=== PATIENT | female | born 1945 ===

== ENCOUNTER 2017-11-28 17:06 | Emergency (ER) | payer MEDICAID, MEDICARE ==
[2017-11-28 17:12] VITALS: RESP 18; TEMP 98; O2SAT 97
[2017-11-28] MEDS ORDERED: Silver Sulfadiazine 1% CREAM (50 gm) TOP STA (17:36)
[2017-11-28] MEDS ORDERED: Tdap Vaccine 0.5 ml Vial (10-64 yrs) IM ONE ×2 (17:36→17:57)
[2017-11-28] MEDS ORDERED: Silver Sulfadiazine 1% CREAM (50 gm) ONE (17:58)
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
[2017-11-28 18:18] VITALS: BP 118/74; PULSE 74
== END 2017-11-28 19:00 | disposition home or self-care (01) ==
LOC: H.ER 17:06
DX: T21.02XA Burn of unspecified degree of abdominal wall, initial encounter (principal); E11.9 Type 2 diabetes mellitus without complications; E78.00 Pure hypercholesterolemia, unspecified; F32.9 Major depressive disorder, single episode, unspecified; I10 Essential (primary) hypertension; Z79.82 Long term (current) use of aspirin; Z79.84 Long term (current) use of oral hypoglycemic drugs

== ENCOUNTER 2018-02-09 21:18 | Emergency (ER) | payer MEDICARE ==
[2018-02-09 21:27] VITALS: BP 116/64; PULSE 84; RESP 14; TEMP 97.9; O2SAT 95
--- NOTE | 2018-02-09 21:54 | ED PDOC ---
Lower Extremity Pain/Injury Time Seen by Provider: 02/09/18 21:37 Chief Complaint (Nursing): Lower Extremity Problem/Injury Chief Complaint (Provider): pain to vein of right leg History Per: Patient, Family History/Exam Limitations: no limitations Onset/Duration Of Symptoms: Days (1) Additional Complaint(s): 73 y/o female presents with daughter for evaluation of possible blood clot in right leg. Patient states today while standing she noticed a vein to "bulge" on her right lower extremity with pain. Patient states when she lays and does not have pressure on the leg the vein goes away. Patient is concerned because she had a blood clot in that leg 7 years ago. Denies fever, chest pain, shortness of breath, palpitations, recent travel. Past Medical History Reviewed: Historical Data, Nursing Documentation, Vital Signs Vital Signs: Last Vital Signs Temp 97.9 F 02/09/18 21:26 Pulse 84 02/09/18 21:26 Resp 14 02/09/18 21:26 BP 116/64 02/09/18 21:26 Pulse Ox 95 02/09/18 21:26 - Medical History PMH: Anemia, Depression, Diabetes (type II), Gastritis, HTN, Hypercholesterolemia - Surgical History Surgical History: Tonsillectomy - Family History Family History: States: Unknown Family Hx - Home Medications Home Medications: Ambulatory Orders Medication Instructions Recorded Aspirin [[place] Aspirin] 1 tab PO DAILY 11/06/16 Atorvastatin [Lipitor] 1 tab PO DAILY 11/06/16 Cholecalciferol (Vitamin D3) 1 tab PO DAILY 11/06/16 [Vitamin D3] Famotidine [Pepcid] 1 tab PO DAILY 11/06/16 Ibuprofen [Motrin Tab] 800 mg PO Q8 PRN #20 tab 11/06/16 Latanoprost 0.005% Opht [Xalatan 5 % BOTHEYES DAILY 11/06/16 Opht] Losartan [Cozaar] 1 tab PO DAILY 11/06/16 Omeprazole [Omeprazole] 1 tab PO DAILY 11/06/16 Sertraline [Zoloft] 1 tab PO DAILY 11/06/16 metFORMIN [glucOPHAGE] 1 tab PO BID 11/06/16 Cephalexin [cephalexin] 500 mg PO Q6 #28 cap 11/28/17 - Allergies Allergies/Adverse Reactions: Allergies Allergy/AdvReac Type Severity Reaction Status Date / Time No Known Allergies Allergy Verified 11/28/17 17:36 Review of Systems ROS Statement: Except As Marked, All Systems Reviewed And Found Negative Musculoskeletal: Positive for: Leg Pain Physical Exam - Reviewed Nursing Documentation Reviewed: Yes Vital Signs Reviewed: Yes - Physical Exam Appears: Positive for: Well, Non-toxic, No Acute Distress Head Exam: Positive for: ATRAUMATIC, NORMAL INSPECTION, NORMOCEPHALIC Skin: Positive for: Normal Color Eye Exam: Positive for: Normal appearance ENT: Positive for: Normal ENT Inspection Cardiovascular/Chest: Positive for: Regular Rate, Rhythm Respiratory: Positive for: Normal Breath Sounds Pulses-Dorsalis Pedis (L): 2+ Pulses-Dorsalis Pedis (R): 2+ Pulses-Post. Tibialis (L): 2+ Pulses-Post. Tibialis (R): 2+ Back: Positive for: Normal Inspection Extremity: Positive for: Normal ROM (multiple superficial veins noted to RLE, no palpable cord, erythema, warmth to touch noted). Negative for: Calf Tenderness Neurologic/Psych: Positive for: Alert, Oriented - ECG O2 Sat by Pulse Oximetry: 95 - Progress ED Course And Treament: accucheck, venous duplex RLE EXAM: US Duplex Right Lower Extremity Veins EXAM DATE/TIME: Exam ordered 02/09/2018 9:50 PM CLINICAL HISTORY: 73 years old, female; Signs and symptoms; Swelling of limb; Lower extremity, right; Additional info: R/out dvt TECHNIQUE: Real-time duplex ultrasound scan of the right lower extremity veins integrating B-mode twodimensional vascular structure, Doppler spectral analysis, color flow Doppler imaging and compression. COMPARISON: No relevant prior studies available. FINDINGS: Deep veins: Unremarkable. No DVT in the visualized common femoral, femoral, proximal deep femoral or popliteal veins. The veins demonstrate normal color flow, are normally compressible, with normal phasic flow and/or augmentation response. Superficial veins: Unremarkable. No thrombus in the visualized great saphenous vein. Soft tissues: No acute findings. No popliteal cyst. IMPRESSION: Negative right lower extremity venous duplex exam without evidence of deep venous thrombosis. Patient educated on findings, discharged with instructions to follow up PMD 2-3 days Advised compression stockings Return precautions given Disposition - Clinical Impression Clinical Impression: Painful veins - Patient ED Disposition Is Patient to be Admitted: No Counseled Patient/Family Regarding: Studies Performed, Diagnosis, Need For Followup - Disposition Disposition: Routine/Home Disposition Time: 23:18 Condition: GOOD Instructions: Varicose Veins and Other Vein Disease in the Legs Forms: [employer] ([place]) Print Language: POLISH
--- NOTE | 2018-02-10 10:09 | US ---
PROCEDURE: Right lower extremity venous duplex Doppler. HISTORY: r/out DVT COMPARISON: None available. TECHNIQUE: Common femoral, superficial femoral, popliteal and posterior tibial veins were evaluated. Flow was assessed with color Doppler, compressibility, assessment of phasic flow and augmentation response. FINDINGS: COMMON FEMORAL VEIN: Unremarkable. SUPERFICIAL FEMORAL VEIN: Unremarkable. POPLITEAL VEIN: Unremarkable. POSTERIOR TIBIAL VEIN: Unremarkable. OTHER FINDINGS: None. IMPRESSION: No evidence of deep venous thrombosis in the right lower extremity.
== END 2018-02-09 23:40 | disposition home or self-care (01) ==
LOC: H.ER 21:18
DX: I87.9 Disorder of vein, unspecified (principal); E11.9 Type 2 diabetes mellitus without complications; E78.00 Pure hypercholesterolemia, unspecified; F32.9 Major depressive disorder, single episode, unspecified; I10 Essential (primary) hypertension; Z79.82 Long term (current) use of aspirin; Z79.84 Long term (current) use of oral hypoglycemic drugs

== ENCOUNTER 2018-07-12 11:29 | Emergency (ER) | payer MEDICARE ==
[2018-07-12 12:18] VITALS: TEMP 98
[2018-07-12] MEDS ORDERED: Naproxen 500 MG TAB PO STA (12:47)
[2018-07-12] MEDS ORDERED: Naproxen 500 MG TAB PO ONE (12:53)
--- NOTE | 2018-07-12 13:41 | ED PDOC ---
HPI: Back Time Seen by Provider: 07/12/18 12:17 Chief Complaint (Nursing): Back Pain Chief Complaint (Provider): Back Pain History Per: Patient History/Exam Limitations: no limitations Onset/Duration Of Symptoms: Days (x2 weeks) Additional Complaint(s): 73 y/o female with HTN and anemia presents to the ED complaining of right buttock pain with radiation down leg. Patient reports that she fell x2 weeks ago and since then symptoms have persisted. She has had no such similar symptoms in the past. Patient states she took Tylenol but with no relief. Past Medical History Reviewed: Historical Data, Nursing Documentation, Vital Signs Vital Signs: Last Vital Signs Temp 98 F 07/12/18 12:15 Pulse 75 07/12/18 12:15 Resp 18 07/12/18 12:15 BP 134/69 07/12/18 12:15 Pulse Ox 97 07/12/18 12:15 - Medical History PMH: Anemia, Depression, Diabetes (type II), Gastritis, HTN, Hypercholesterolemia - Surgical History Surgical History: Tonsillectomy - Family History Family History: States: Unknown Family Hx - Home Medications Home Medications: Ambulatory Orders Medication Instructions Recorded Cholecalciferol (Vitamin D3) 1 tab PO DAILY 11/06/16 [Vitamin D3] Ibuprofen [Motrin Tab] 800 mg PO Q8 PRN #20 tab 11/06/16 Losartan [Cozaar] 1 tab PO DAILY 11/06/16 Omeprazole 1 tab PO DAILY 11/06/16 RX: Aspirin [[place] Aspirin] 1 tab PO DAILY 11/06/16 RX: Atorvastatin [Lipitor] 1 tab PO DAILY 11/06/16 RX: Famotidine [Pepcid] 1 tab PO DAILY 11/06/16 RX: Latanoprost 0.005% Opht 5 % BOTHEYES DAILY 11/06/16 [Xalatan Opht] RX: metFORMIN [glucOPHAGE] 1 tab PO BID 11/06/16 Sertraline [Zoloft] 1 tab PO DAILY 11/06/16 Cephalexin [cephalexin] 500 mg PO Q6 #28 cap 11/28/17 Cyclobenzaprine [Cyclobenzaprine 10 mg PO Q8H PRN #12 tab 07/12/18 HCl] - Allergies Allergies/Adverse Reactions: Allergies Allergy/AdvReac Type Severity Reaction Status Date / Time No Known Allergies Allergy Verified 11/28/17 17:36 Review of Systems ROS Statement: Except As Marked, All Systems Reviewed And Found Negative Musculoskeletal: Positive for: Back Pain, Leg Pain (right) Physical Exam - Reviewed Nursing Documentation Reviewed: Yes Vital Signs Reviewed: Yes - Physical Exam Appears: Positive for: Well, Non-toxic, No Acute Distress Head Exam: Positive for: ATRAUMATIC, NORMOCEPHALIC Skin: Positive for: Normal Color, Warm, DRY Eye Exam: Positive for: EOMI, Normal appearance, PERRL Cardiovascular/Chest: Positive for: Regular Rate, Rhythm. Negative for: Murmur, Bradycardia, Tachycardia Respiratory: Positive for: Normal Breath Sounds. Negative for: Respiratory Distress Back: Positive for: Normal Inspection. Negative for: Vertebral Tenderness (midline tenderness), Other (bony deformity) Extremity: Positive for: Normal ROM, Other (Right leg: positive straight leg raise test). Negative for: Pedal Edema, Deformity Neurologic/Psych: Positive for: Alert, Oriented, Gait (steady). Negative for: Motor/Sensory Deficits - ECG O2 Sat by Pulse Oximetry: 97 (RA) Pulse Ox Interpretation: Normal Medical Decision Making Medical Decision Making: No bony tenderness, steady gait. Pt insists on XR. Hip, 1 view. Time: 12:47 Initial Impression: right buttock pain s/p fall Initial Plan: * Flexeril * Naproxen * RAD - Hip Scribe Attestation: Documented by Jerod Morrison, acting as a scribe for Rosio Hassan PA-C. Provider Scribe Attestation: All medical record entries made by the Scribe were at my direction and personally dictated by me. I have reviewed the chart and agree that the record accurately reflects my personal performance of the history, physical exam, medical decision making, and the department course for this patient. I have also personally directed, reviewed, and agree with the discharge instructions and disposition. Disposition - Clinical Impression Clinical Impression: Sciatica - Patient ED Disposition Is Patient to be Admitted: No Counseled Patient/Family Regarding: Diagnosis, Need For Followup, Rx Given - Disposition Disposition: Routine/Home Disposition Time: 13:56 Condition: STABLE Prescriptions: Cyclobenzaprine [Cyclobenzaprine HCl] 10 mg PO Q8H PRN #12 tab PRN Reason: Muscle Spasm Instructions: Sciatica (DC), Sciatica Exercises Forms: [employer] (Upper Sorbian) Print Language: CZECH
[2018-07-12 14:34] VITALS: BP 141/59; PULSE 77; RESP 16
--- NOTE | 2018-07-12 15:07 | RAD ---
PROCEDURE: Right Hip Radiographs. HISTORY: right buttocks pain, s/p fall COMPARISON: None. FINDINGS: BONES: Normal. No fracture. JOINTS: Normal. SOFT TISSUES: Normal. OTHER FINDINGS: None. IMPRESSION: No acute findings related to/accounting for the clinical presentation.
[2018-07-12 19:56] VITALS: O2SAT 97
== END 2018-07-12 14:33 | disposition home or self-care (01) ==
LOC: H.ER 11:29
DX: M54.31 Sciatica, right side (principal); D64.9 Anemia, unspecified; E11.9 Type 2 diabetes mellitus without complications; Z79.84 Long term (current) use of oral hypoglycemic drugs

== ENCOUNTER 2018-11-16 10:23 | Emergency (ER) | payer MEDICARE ==
--- NOTE | 2018-11-16 11:37 | ED PDOC ---
HPI: General Adult Additional Complaint(s): This is 73 y/o F with PMH of anemia, HTN, DM-II, Gastritis and HLD comes to the ER c/o one day hx of dizziness/Vertigo and lightheadedness. Patient reports she woke up this morning at 3 am screaming c/o severe dizziness like she is going to pass out, + room spinning, + nausea, blurred vision and weakness. Reports this symptoms come and go, gets worse with movement. Patient denies any headache, ringing in ears, chest pain, SOB, abdominal pain, dysuria or numbness/tingling. Patient denies any f/c/n/v/d. + weight loss and recent upper resp congestion. PMH: anemia, HTN, DM-II, Gastritis and HLD PSH: Denies Allg: NKDA SH: Denies alcohol/smoking or drug use FH: + Pancreatic cancer ROS: As per above <Nate Sharma - Last Filed: 11/16/18 14:30> <Escobar Juarez - Last Filed: 11/16/18 14:37> Time Seen by Provider: 11/16/18 11:06 Chief Complaint (Nursing): Dizziness/Lightheaded Supervising Attending Note - Supervising Attending Note The Documented history was done by the: Physician Bottom Precipitator Operator The documented physical exam was done by the: Physician Bottom Precipitator Operator The documented procedures were done by the: Physician Bottom Precipitator Operator - Attestation: I have personally seen and examined this patient.: Yes I have fully participated in the care of the patient.: Yes I have reviewed all pertinent clinical information, including history, physical exam and plan: Yes - Notes: Notes:: dizziness like room spinning on movement; at rest no dizziness. <Escobar Juarez - Last Filed: 11/16/18 14:37> Past Medical History Vital Signs: Last Vital Signs Temp 97.7 F 11/16/18 10:56 Pulse 78 11/16/18 10:56 Resp 12 11/16/18 10:56 BP 126/72 11/16/18 10:56 Pulse Ox 97 11/16/18 10:56 - Medical History PMH: Anemia, Depression, Diabetes (type II), Gastritis, HTN, Hypercholesterolemia - Surgical History Surgical History: Tonsillectomy - Family History Family History: States: Unknown Family Hx <Nate Sharma - Last Filed: 11/16/18 14:30> Vital Signs: Last Vital Signs Temp 97.7 F 11/16/18 10:56 Pulse 78 11/16/18 10:56 Resp 12 11/16/18 10:56 BP 126/72 11/16/18 10:56 Pulse Ox 97 11/16/18 14:31 <JuarezEscobar Manzano - Last Filed: 11/16/18 14:37> - Home Medications Home Medications: Ambulatory Orders Medication Instructions Recorded Aspirin [[place] Aspirin] 1 tab PO DAILY 11/06/16 Atorvastatin [Lipitor] 1 tab PO DAILY 11/06/16 Cholecalciferol (Vitamin D3) 1 tab PO DAILY 11/06/16 [Vitamin D3] Famotidine [Pepcid] 1 tab PO DAILY 11/06/16 Ibuprofen [Motrin Tab] 800 mg PO Q8 PRN #20 tab 11/06/16 Latanoprost 0.005% Opht [Xalatan 5 % BOTHEYES DAILY 11/06/16 Opht] Losartan [Cozaar] 1 tab PO DAILY 11/06/16 Omeprazole 1 tab PO DAILY 11/06/16 Sertraline [Zoloft] 1 tab PO DAILY 11/06/16 metFORMIN [glucOPHAGE] 1 tab PO BID 11/06/16 Cephalexin [cephalexin] 500 mg PO Q6 #28 cap 11/28/17 Cyclobenzaprine [Cyclobenzaprine 10 mg PO Q8H PRN #12 tab 07/12/18 HCl] Meclizine [Meclizine*] 25 mg PO Q12 PRN #10 tab 11/16/18 - Allergies Allergies/Adverse Reactions: Allergies Allergy/AdvReac Type Severity Reaction Status Date / Time No Known Allergies Allergy Verified 11/28/17 17:36 Review of Systems Constitutional: Positive for: Weakness. Negative for: Fever, Sweats Eyes: Negative for: Pain ENT: Negative for: Ear Pain Cardiovascular: Negative for: Chest Pain, Palpitations, Orthopnea Respiratory: Negative for: Cough, Shortness of Breath, Hemoptysis Gastrointestinal: Positive for: Nausea. Negative for: Vomiting, Abdominal Pain, Diarrhea Genitourinary Female: Negative for: Dysuria, Frequency Musculoskeletal: Negative for: Neck Pain Skin: Negative for: Rash Neurological: Positive for: Weakness, Dizziness. Negative for: Numbness, Change in Speech, Confusion, Seizures, Altered Mental Status, Headache Psych: Negative for: Anxiety <Nate Sharma - Last Filed: 11/16/18 14:30> Physical Exam - Physical Exam Appears: Positive for: No Acute Distress Head Exam: Positive for: NORMAL INSPECTION Skin: Positive for: Normal Color Eye Exam: Positive for: Normal appearance ENT: Positive for: Normal ENT Inspection Neck: Positive for: Normal Cardiovascular/Chest: Positive for: Regular Rate, Rhythm Respiratory: Positive for: Normal Breath Sounds. Negative for: Decreased Breath Sounds, Accessory Muscle Use, Crackles, Wheezing Gastrointestinal/Abdominal: Positive for: Normal Exam, Bowel Sounds, Soft. Negative for: Tenderness, Distended, Guarding, Rebound Back: Positive for: Normal Inspection. Negative for: L CVA Tenderness, R CVA Tenderness Extremity: Positive for: Normal ROM. Negative for: Tenderness, Pedal Edema, Calf Tenderness Neurological/Psych: Positive for: Awake, Alert, Normal Tone, Oriented, wall covering contractor II- XII. Negative for: Motor/Sensory Deficits <Nate Sharma - Last Filed: 11/16/18 14:30> - Physical Exam Cardiovascular/Chest: Positive for: Regular Rate, Rhythm Respiratory: Positive for: Normal Breath Sounds <Escobar Juarez - Last Filed: 11/16/18 14:37> - Laboratory Results Result Diagrams: 11/16/18 11:45 11/16/18 11:45 - ECG O2 Sat by Pulse Oximetry: 97 - Progress ED Course And Treament: A/P: 73 y/o F with PMH of anemia, HTN, DM-II, Gastritis and HLD comes to the ER c/o one day hx of dizziness/Vertigo and lightheadedness. - CBC - CMP - Trop - EKG - CT head w/o CONT - Zofran - Meclizine - Reevaluation Case discussed with Dr. Juarez, agrees with plan CBC and CMP reviewed:WNL Trop negative EKG reviewed CT: No acute changes Patient feels much better and agrees with discharge plan Re-evaluation Time: 14:30 Condition: Improved <Nate Sharma - Last Filed: 11/16/18 14:30> - Laboratory Results Result Diagrams: 11/16/18 11:45 11/16/18 11:45 Lab Results: Troponin I < 0.0120 ng/mL (0.00-0.120) 11/16/18 11:45 Total Bilirubin 0.2 mg/dl (0.2-1.3) 11/16/18 11:45 AST 30 U/L (14-36) 11/16/18 11:45 ALT 36 U/L (9-52) 11/16/18 11:45 Alkaline Phosphatase 149 U/L (38-126) H 11/16/18 11:45 Total Protein 7.7 G/DL (6.3-8.2) 11/16/18 11:45 Albumin 4.1 g/dL (3.5-5.0) 11/16/18 11:45 Globulin 3.6 gm/dL (2.2-3.9) 11/16/18 11:45 Albumin/Globulin Ratio 1.1 (1.0-2.1) 11/16/18 11:45 Interpretation Of Abn Labs: no acute - ECG ECG: Positive for: Interpreted By Me, Viewed By Me ECG Rhythm: Positive for: Normal QRS, Normal ST Segment, Sinus Rhythm - Progress ED Course And Treament: 1436: Stable. AAOx3. Ambulated with no issues. No dizziness. Tolerated PO. <Escobar Juarez - Last Filed: 11/16/18 14:37> Disposition <Nate Sharma - Last Filed: 11/16/18 14:30> - Patient ED Disposition Is Patient to be Admitted: No Counseled Patient/Family Regarding: Studies Performed, Diagnosis, Need For Followup, Rx Given - Disposition Disposition: Routine/Home Disposition Time: 12:40 <Escobar Juarez - Last Filed: 11/16/18 14:37> - Clinical Impression Clinical Impression: Dizziness - Disposition Referrals: [facility] [Outside] - 11/17/18 Condition: STABLE Additional Instructions: Return if not better in 3 days. Prescriptions: Meclizine [Meclizine*] 25 mg PO Q12 PRN #10 tab PRN Reason: Dizziness Instructions: Vertigo (a Type of Dizziness) Print Language: ROMANIAN
[2018-11-16] MEDS: Sodium Chloride 0.9% 1,000 ML IV SCH (11:47)
[2018-11-16 11:55] LABS: BASO % 0.5 % (0.0-2.0); EOS # 0.3 K/uL (0.0-0.7); EOS % 3.4 % (0.0-4.0); LYMPH # 1.6 K/uL (1.0-4.3); LYMPH % 19.2 % (20.0-40.0); MEAN CELL VOLUME 83.8 fl (81.0-99.0); MEAN CORPUSCULAR HEMOGLOBIN 27.7 pg (27.0-31.0); MEAN PLATELET VOLUME 7.6 fl (7.2-11.7); MONO # 0.9 K/uL (0.0-0.8); MONO % 10.8 % (0.0-10.0); NEUT # 5.7 K/uL (1.8-7.0); NEUT % 66.1 % (50.0-75.0); RBC 3.99 Mil/uL (3.80-5.20); RED CELL DISTRIBUTION WIDTH 16.7 % (11.5-14.5); WHITE BLOOD COUNT 8.6 K/uL (4.8-10.8)
[2018-11-16 12:22] LABS: ALB/GLOB RATIO 1.1 (1.0-2.1); ALBUMIN 4.1 g/dL (3.5-5.0); ALT/SGPT 36 U/L (9-52); AST/SGOT 30 U/L (14-36); BLOOD UREA NITROGEN 18 mg/dl (7-17); CALCIUM 9.3 mg/dL (8.4-10.2); GFR NON-AFRICAN AMERICAN > 60
--- NOTE | 2018-11-16 13:44 | CT ---
Date of service: 11/16/2018 PROCEDURE: CT HEAD WITHOUT CONTRAST. HISTORY: Vertigo/Dizziness COMPARISON: None available. TECHNIQUE: Axial computed tomography images were obtained through the head/brain without intravenous contrast. Radiation dose: Total exam DLP = 809.71 mGy-cm. This CT exam was performed using one or more of the following dose reduction techniques: Automated exposure control, adjustment of the mA and/or kV according to patient size, and/or use of iterative reconstruction technique. FINDINGS: HEMORRHAGE: No acute parenchymal, subarachnoid or extra-axial hemorrhage. BRAIN: Minor diffuse/confluent chronic periventricular white matter ischemic changes present. There may be a few tiny chronic bilateral basal nuclei lacunar type infarcts. Note that the possibility of a small hyperacute infarct cannot be excluded on this exam. Mild generalized volume loss. VENTRICLES: No obstructive hydrocephalus. CALVARIUM: Calvarium intact. PARANASAL SINUSES: Mild mucosal periosteal inflammatory changes seen within few ethmoid air cells and sphenoid sinus MASTOID AIR CELLS: Unremarkable as visualized. No inflammatory changes. OTHER FINDINGS: None. IMPRESSION: No acute intracranial hemorrhage. 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
[2018-11-16 14:54] VITALS: BP 118/89; PULSE 74; RESP 15; TEMP 98.5; O2SAT 95
--- NOTE | 2018-11-16 17:32 | CARD ---
APPROVED REPORT Date of service: 11/16/2018 EKG Measurement Heart [id number] <Conclusion> Normal sinus rhythm Left anterior fascicular block Minimal voltage criteria for LVH, may be normal variant Abnormal ECG
== END 2018-11-16 14:49 | disposition home or self-care (01) ==
LOC: H.ER 10:23
DX: R42 Dizziness and giddiness (principal); D64.9 Anemia, unspecified; E11.9 Type 2 diabetes mellitus without complications; E78.00 Pure hypercholesterolemia, unspecified; I10 Essential (primary) hypertension; Z79.84 Long term (current) use of oral hypoglycemic drugs
CPT/HCPCS: 70450; 80053; 82948; 84484; 85025; 93005; 96361; 96374; 99285; J2405; J7030